=== PATIENT | male | born 1965 | race Caucasian/White ===

== ENCOUNTER 2016-11-08 13:14 | Emergency (ER) | payer BC ==
[2016-11-08 13:41] VITALS: BP 130/81
[2016-11-08] MEDS ORDERED: Tetracaine HCl/PF 0.5% 4 ML Bottle EYEBOTH ONE (13:50)
[2016-11-08] MEDS ORDERED: Balanced Salt Solution Ophth Irrig 30 ML Bottle EYEBOTH ONE (13:50)
[2016-11-08] MEDS ORDERED: Fluorescein 1 MG Ophth Strip EYEBOTH ONE (13:50)
--- NOTE | 2016-11-08 14:14 | EDM.PDOC ---
ED HPI GENERAL MEDICAL PROBLEM - General Chief Complaint: Eye Problems Stated Complaint: LEFT EYE COMPLAINT Time Seen by Provider: 11/08/16 14:03 Source of Information: Reports: Patient History Limitations: Reports: No Limitations - History of Present Illness INITIAL COMMENTS - FREE TEXT/NARRATIVE: 51 yo Onset Date: 11/07/16 Onset Time: 12:00 Duration: Day(s): Location: Reports: Other (left eye) Quality: Reports: Ache, Other (and scratchy) Improves with: Reports: Rest Worsens with: Reports: Other (light), Movement Associated Symptoms: Reports: No Other Symptoms Left Eye Pain Score (Numeric/FACES): 3 - Related Data Allergies Allergy/AdvReac Type Severity Reaction Status Date / Time Penicillins Allergy Anaphylactic Verified 07/16/15 20:58 Shock cold Allergy Respiratory Uncoded 07/16/15 20:59 Distress Home Meds: Home Meds . [No Known Home Meds] 07/16/15 [History] Past Medical History - Past Surgical History HEENT Surgical History: Reports: Tonsillectomy GI Surgical History: Reports: Cholecystectomy Male Surgical History: Reports: Vasectomy Social & Family History - Family History Cardiac: Reports: Aneurysm - Tobacco Use Smoking Status *Q: Never Smoker - Caffeine Use Caffeine Use: Reports: None - Alcohol Use Days Per Week of Alcohol Use: 5 Number of Drinks Per Day: 5 Total Drinks Per Week: 25 - Recreational Drug Use Recreational Drug Use: No ED ROS GENERAL - Review of Systems Review Of Systems: See Below Constitutional: Reports: No Symptoms HEENT: Reports: Eye Pain Respiratory: Reports: No Symptoms Cardiovascular: Reports: No Symptoms Endocrine: Reports: No Symptoms GI/Abdominal: Reports: No Symptoms : Reports: No Symptoms Musculoskeletal: Reports: No Symptoms Skin: Reports: No Symptoms Neurological: Reports: No Symptoms Psychiatric: Reports: No Symptoms Hematologic/Lymphatic: Reports: No Symptoms Immunologic: Reports: No Symptoms ED EXAM GENERAL W FULL EYE - Physical Exam Exam: See Below Exam Limited By: No Limitations General Appearance: Alert, No Apparent Distress, Obese Eye Exam: Left Eye: Corneal Abrasion (possible from fingernail scratch) Eyelids: Bilateral: Normal Appearance Conjunctiva & Sclera: Bilateral: Normal Appearance Cornea Exam: Left: Corneal Abrasion (crescent shape) Extraocular Movements: Bilateral: Intact Pupils: Normal Accommodation Pupillary Size: Bilateral: 4 mm Pupillary Reaction: Bilateral: Brisk Anterior Chamber: Bilateral: Normal Appearance Posterior Chamber: Bilateral: Normal Funduscopic Ears: Normal External Exam Nose: Normal Inspection Throat/Mouth: Normal Inspection Head: Atraumatic Neck: Normal Inspection Respiratory/Chest: No Respiratory Distress Cardiovascular: Normal Peripheral Pulses Extremities: Normal Inspection Neurological: Alert, Oriented, CN II-XII Intact Psychiatric: Normal Affect Skin Exam: Warm Lymphatic: No Adenopathy ED EYE w/ Add Procedure - Eye Procedure Alcaine Drops Administered: Yes Eye Irrigated w/ Saline (ccs): 5 Antibiotic Oinment/Drps Admin: Left Eye - Additional/Other Procedure(s) Other (Free Text) Procedure(s) [Text1]: Gentak applied w/ eye patch Course - Vital Signs Last Recorded V/S: Last Vital Signs Temp 36.8 C 11/08/16 13:39 Pulse 75 11/08/16 13:39 Resp 16 11/08/16 13:39 BP 130/81 11/08/16 13:39 Pulse Ox 97 11/08/16 13:39 - Orders/Labs/Meds Meds: Medications Discontinued Medications Generic Name Dose Route Start Last Admin Trade Name Joseq PRN Reason Stop Dose Admin Balanced Salt Solution 30 ml 11/08/16 13:50 11/08/16 14:00 Eye Stream Eye Rinse EYEBOTH 11/08/16 13:51 5 ml ONETIME ONE Administration Fluorescein Sodium 1 mg 11/08/16 13:50 11/08/16 13:59 Ful-Monika EYEBOTH 11/08/16 13:51 1 mg ONETIME ONE Administration Gentamicin Sulfate 1 gm 11/08/16 14:15 Gentak 0.3% Ophth Oint EYELF 11/08/16 14:16 NOW STA Tetracaine HCl 5 ml 11/08/16 13:50 11/08/16 14:00 Tetracaine 0.5% Steri-Unit Dorita EYEBOTH 11/08/16 13:51 5 ml ASDIRECTED ONE Administration Departure - Departure Time of Disposition: 14:27 Disposition: Home, Self-Care 01 Condition: Good Clinical Impression: Corneal abrasion Qualifiers: Encounter type: initial encounter Laterality: left Qualified Code(s): S05.02XA - Injury of conjunctiva and corneal abrasion without foreign body, left eye, initial encounter - Discharge Information Forms: ED Department Discharge Additional Instructions: wear eye patch X 24 hours Return to ER or PCP on Wednesday for re-evaluation
== END 2016-11-08 14:45 | disposition home or self-care (01) ==
LOC: DL.ED 13:14
DX: S05.02XA Injury of conjunctiva and corneal abrasion without foreign body, left eye, initial encounter (principal); Z88.0 Allergy status to penicillin; Z91.048 Other nonmedicinal substance allergy status; Z90.49 Acquired absence of other specified parts of digestive tract; Z98.52 Vasectomy status; Z98.890 Other specified postprocedural states; X58.XXXA Exposure to other specified factors, initial encounter
CPT/HCPCS: 99282; A9270

== ENCOUNTER 2020-11-29 09:40 | Emergency (ER) | payer BC ==
[2020-11-29] MEDS ORDERED: Aspirin 81 MG Tab.Chew PO ONE (09:50)
--- NOTE | 2020-11-29 09:57 | EDM.PDOC ---
ED HPI GENERAL MEDICAL PROBLEM - General Stated Complaint: CHEST TIGHTNESS / BACK HURTS Time Seen by Provider: 11/29/20 09:45 Source of Information: Reports: Patient History Limitations: Reports: No Limitations - History of Present Illness INITIAL COMMENTS - FREE TEXT/NARRATIVE: This 55 yo male patient reports to the ED with chest tightness radiating to his back. The patient reports he has noticed some increased shortness of breath over the past month, but began to notice some chest tightness starting last night. The patient also reports some pain radiating to his left posterior shoulder. The patient denies any cardiac history. The patient has not taken anything for temporary symptom relief. Onset: Gradual Duration: Day(s):, Constant, Getting Worse Location: Reports: Chest Quality: Reports: Ache, Pressure Severity: Moderate Improves with: Reports: None Worsens with: Reports: None Context: Reports: Other Associated Symptoms: Reports: Chest Pain - Related Data Allergies Allergy/AdvReac Type Severity Reaction Status Date / Time Penicillins Allergy Anaphylactic Verified 11/29/20 10:04 Shock cold Allergy Respiratory Uncoded 07/16/15 20:59 Distress Home Meds: Home Meds . [No Known Home Meds] 07/16/15 [History] Past Medical History - Past Surgical History HEENT Surgical History: Reports: Tonsillectomy GI Surgical History: Reports: Cholecystectomy Male Surgical History: Reports: Vasectomy Social & Family History - Family History Cardiac: Reports: Aneurysm - Caffeine Use Caffeine Use: Reports: None ED ROS GENERAL - Review of Systems Review Of Systems: Comprehensive ROS is negative, except as noted in HPI. ED EXAM, GENERAL - Physical Exam Exam: See Below Exam Limited By: No Limitations General Appearance: Alert, WD/WN Eye Exam: Bilateral Eye: EOMI, Normal Inspection, PERRL Ears: Normal External Exam, Normal Canal, Hearing Grossly Normal, Normal TMs Nose: Normal Inspection, Normal Mucosa, No Blood Throat/Mouth: Normal Inspection, Normal Lips, Normal Teeth, Normal Gums, Normal Oropharynx, Normal Voice, No Airway Compromise Head: Atraumatic, Normocephalic Neck: Normal Inspection, Supple, Non-Tender, Full Range of Motion Respiratory/Chest: No Respiratory Distress, Lungs Clear, Normal Breath Sounds, No Accessory Muscle Use, Chest Non-Tender Cardiovascular: Normal Peripheral Pulses, Regular Rate, Rhythm, No Edema, No Gallop, No JVD, No Murmur, No Rub GI/Abdominal: Normal Bowel Sounds, Soft, Non-Tender, No Organomegaly, No Dis tention, No Abnormal Bruit, No Mass (Male) Exam: Deferred Rectal (Males) Exam: Deferred Back Exam: Normal Inspection, Full Range of Motion, NT Extremities: Normal Inspection, Normal Range of Motion, Non-Tender, Normal Capillary Refill, No Pedal Edema Neurological: Alert, Oriented, CN II-XII Intact, Normal Cognition, Normal Gait, Normal Reflexes, No Motor/Sensory Deficits Psychiatric: Normal Affect, Normal Mood Skin Exam: Warm, Dry, Intact, Normal Color, No Rash Lymphatic: No Adenopathy #1 Interpretation EKG Date: 11/29/20 Time: 09:46 Rhythm: NSR Rate (Beats/Min): 69 [place]: Normal P-Wave: Present QRS: Normal ST-T: Normal QT: Normal Comparison: NA - No Prior EKG Course - Vital Signs Last Recorded V/S: Last Vital Signs Temp 97.6 F 11/29/20 09:57 Pulse 66 11/29/20 09:57 Resp 18 11/29/20 09:57 BP 145/95 H 11/29/20 09:57 Pulse Ox 100 11/29/20 09:57 - Orders/Labs/Meds Labs: Laboratory Tests 11/29/20 11/29/20 11/29/20 Range/Units 09:56 09:56 09:56 WBC 7.2 (5.0-10.0) 10^3/uL RBC 4.97 (4.6-6.2) 10^6/uL Hgb 14.7 (14.0-18.0) g/dL Hct 45.6 (40.0-54.0) % MCV 91.8 (80-100) fL MCH 29.6 (27.0-34.0) pg MCHC 32.2 L (33.0-35.0) g/dL Plt Count 291 D (150-450) 10^3/uL Neut % (Auto) 51.9 (42.2-75.2) % Lymph % (Auto) 28.6 (20.5-50.1) % [place] % (Auto) 16.6 H (2-8) % Eos % (Auto) 2.5 (1.0-3.0) % Baso % (Auto) 0.4 (0.0-1.0) % D-Dimer, Quantitative 399 (0-400) ng/mL Sodium 141 (136-145) mmol/L Potassium 4.1 (3.5-5.1) mmol/L Chloride 105 (98-107) mmol/L Carbon Dioxide 29 (21-32) mmol/L Anion Gap 11.1 (7-13) mEq/L BUN 14 (7-18) mg/dL Creatinine 0.89 (0.70-1.30) mg/dL Est Cr Clr Drug Dosing TNP Estimated GFR (MDRD) > 60 BUN/Creatinine Ratio 15.7 (No establ ref range) Glucose 90 (70-99) mg/dL Lactic Acid (0.4-2.0) mmol/L Calcium 8.3 L (8.5-10.1) mg/dL Total Bilirubin 0.6 (0.2-1.0) mg/dL AST 19 (15-37) U/L ALT 27 (16-63) U/L Alkaline Phosphatase 60 (46-116) U/L Troponin I High Sens 6 (<=76) pg/mL Total Protein 7.1 (6.4-8.2) g/dL Albumin 3.2 L (3.4-5.0) g/dL Globulin 3.9 Albumin/Globulin Ratio 0.82 11/29/20 11/29/20 Range/Units 09:56 12:20 WBC (5.0-10.0) 10^3/uL RBC (4.6-6.2) 10^6/uL Hgb (14.0-18.0) g/dL Hct (40.0-54.0) % MCV (80-100) fL MCH (27.0-34.0) pg MCHC (33.0-35.0) g/dL Plt Count (150-450) 10^3/uL Neut % (Auto) (42.2-75.2) % Lymph % (Auto) (20.5-50.1) % [place] % (Auto) (2-8) % Eos % (Auto) (1.0-3.0) % Baso % (Auto) (0.0-1.0) % D-Dimer, Quantitative (0-400) ng/mL Sodium (136-145) mmol/L Potassium (3.5-5.1) mmol/L Chloride (98-107) mmol/L Carbon Dioxide (21-32) mmol/L Anion Gap (7-13) mEq/L BUN (7-18) mg/dL Creatinine (0.70-1.30) mg/dL Est Cr Clr Drug Dosing Estimated GFR (MDRD) BUN/Creatinine Ratio (No establ ref range) Glucose (70-99) mg/dL Lactic Acid 1.4 (0.4-2.0) mmol/L Calcium (8.5-10.1) mg/dL Total Bilirubin (0.2-1.0) mg/dL AST (15-37) U/L ALT (16-63) U/L Alkaline Phosphatase (46-116) U/L Troponin I High Sens 7 (<=76) pg/mL Total Protein (6.4-8.2) g/dL Albumin (3.4-5.0) g/dL Globulin Albumin/Globulin Ratio Meds: Medications Discontinued Medications Generic Name Dose Route Start Last Admin Trade Name Freq PRN Reason Stop Dose Admin Al Hydroxide/Mg Hydroxide 30 ml 11/29/20 10:31 11/29/20 10:38 Gi Cocktail Oral Solution 30 Ml PO 11/29/20 10:32 30 ml ONETIME ONE Administration Aspirin 324 mg 11/29/20 09:50 11/29/20 09:53 Aspirin 81 Mg Tab.Chew PO 11/29/20 09:51 324 mg ONETIME ONE Administration Pantoprazole Sodium 40 mg 11/29/20 11:05 11/29/20 11:13 Pantoprazole 40 Mg Vial IVPUSH 11/29/20 11:06 40 mg ONETIME ONE Administration - Re-Assessments/Exams Free Text/Narrative Re-Assessment/Exam: 11/29/20 11:15 The patient reports symptom improvement after the GI Cocktail. An order was placed for IV Protonix. The patient was advised that an order was placed for a repeat EKG to be done at 1200 today. Departure - Departure Time of Disposition: 12:59 Disposition: Home, Self-Care 01 Condition: Fair Clinical Impression: Nonspecific chest pain GERD (gastroesophageal reflux disease) Qualifiers: Esophagitis presence: esophagitis presence not specified Qualified Code(s): K21.9 - Gastro-esophageal reflux disease without esophagitis Instructions: Food Choices for Gastroesophageal Reflux Disease, Adult, Ea sy-to-Read, Gastroesophageal Reflux Disease, Adult, [id number], Nonspecific Chest Pain, Adult, [id number] Forms: ED Department Discharge Care Plan Goals: The patient was advised of the examination, lab and EKG results during the visit. The patient was given an oral dose of Aspirin, an IV dose of Protonix and a GI Cocktail while in the ED. The patient was discharged with a script for Omeprazole (20 mg) #40 to take 1 by mouth daily 30 minuted prior to eating. If the patient has any additional symptoms or concerns, the patient should follow- up with his primary care facility or return to the emergency department. Sepsis Event Note (ED) - Focused Exam Vital Signs: Vital Signs Temp Pulse Resp BP Pulse Ox 11/29/20 09:57 97.6 F 66 18 145/95 H 100
[2020-11-29 10:00] VITALS: BP 145/95; PULSE 66
[2020-11-29 10:24] LABS: ANION GAP 11.1 mEq/L (7-13); CHLORIDE,CL 105 mmol/L (98-107); SODIUM,NA 141 mmol/L (136-145)
--- NOTE | 2020-11-29 10:30 | CR ---
PROCEDURE INFORMATION: Exam: XR Chest Exam date and time: 11/29/2020 9:52 AM Age: 55 years old Clinical indication: Pain; Other: Chest; Additional info: Chest pain TECHNIQUE: Imaging protocol: XR of the chest. Views: 1 view. COMPARISON: CR Chest 1V Frontal 07/16/2015 9:04 PM FINDINGS: Lungs: Unremarkable. No consolidation. Pleural spaces: Unremarkable. No pleural effusion. No pneumothorax. Heart/Mediastinum: Unremarkable. No cardiomegaly. Bones/joints: Unremarkable. IMPRESSION: No acute cardiac or pulmonary findings.
[2020-11-29] MEDS ORDERED: GI Cocktail Oral Solution 30 ML PO ONE (10:31)
[2020-11-29] MEDS ORDERED: Pantoprazole 40 MG Vial IVPUSH ONE (11:05)
== END 2020-11-29 13:08 | disposition home or self-care (01) ==
LOC: DL.ED 09:40
DX: K21.9 Gastro-esophageal reflux disease without esophagitis (principal); Z88.0 Allergy status to penicillin
CPT/HCPCS: 36415; 71045; 80053; 83605; 84484; 85025; 85379; 93005; 93010; 96374; 99284; 99285-25; A9270-GY; C9113

== ENCOUNTER 2021-09-13 09:23 | Emergency (ER) | payer BC ==
[2021-09-13 09:37] VITALS: BP 136/83; PULSE 65
== END 2021-09-13 11:20 | disposition home or self-care (01) ==
LOC: DL.ED 09:23
DX: M25.531 Pain in right wrist (principal); M79.631 Pain in right forearm; E66.9 Obesity, unspecified; Z88.0 Allergy status to penicillin; Z91.09 Other allergy status, other than to drugs and biological substances; Z68.41 Body mass index [BMI] 40.0-44.9, adult
CPT/HCPCS: 73090-RT; 73120-RT; 99283-25

== ENCOUNTER 2021-11-24 20:22 | Emergency (ER) | payer BC ==
[2021-11-24] MEDS ORDERED: Acetaminophen/HYDROcodone 325-10 MG Tab PO ONE (20:23)
[2021-11-24 20:41] VITALS: BP 142/76; PULSE 74
[2021-11-24] MEDS ORDERED: Ibuprofen 600 MG Tab PO ONE (21:20)
[2021-11-24] MEDS ORDERED: Acetaminophen/HYDROcodone 325-10 MG Tab ONE (21:36)
== END 2021-11-24 22:10 | disposition home or self-care (01) ==
LOC: DL.ED 20:22
DX: S42.295A Other nondisplaced fracture of upper end of left humerus, initial encounter for closed fracture (principal); E66.9 Obesity, unspecified; Z68.30 Body mass index [BMI] 30.0-30.9, adult; Z91.09 Other allergy status, other than to drugs and biological substances; Z88.0 Allergy status to penicillin; W18.40XA Slipping, tripping and stumbling without falling, unspecified, initial encounter
CPT/HCPCS: 73030-LT; 73060-LT; 73090-LT; 73130-LT; 99283; 99284; A9270-GY

== ENCOUNTER 2022-06-16 21:52 | Emergency (ER) | payer BC ==
[2022-06-16] MEDS ORDERED: Sodium Chloride 0.9% 10 ML Syringe FLUSH PRN (22:11)
[2022-06-16] MEDS ORDERED: Triamcinolone Acetonide 40 MG/ML 1 ML SDV INJECT ONE (22:11)
[2022-06-16] MEDS ORDERED: diphenhydrAMINE 50 MG/ML SDV IM ONE (22:13)
[2022-06-16 22:19] VITALS: BP 156/95; PULSE 86
== END 2022-06-16 22:39 | disposition home or self-care (01) ==
LOC: DL.ED 21:52
DX: K13.79 Other lesions of oral mucosa (principal); L50.2 Urticaria due to cold and heat; E66.9 Obesity, unspecified; Z68.30 Body mass index [BMI] 30.0-30.9, adult; Z88.0 Allergy status to penicillin; Z91.09 Other allergy status, other than to drugs and biological substances
CPT/HCPCS: 96372; 99283; J1200; J3301

== ENCOUNTER 2022-08-02 20:59 | Emergency (ER) | payer BC ==
[2022-08-02 21:19] VITALS: BP 151/94; PULSE 79
== END 2022-08-02 22:25 | disposition home or self-care (01) ==
LOC: DL.ED 20:59
DX: T18.198A Other foreign object in esophagus causing other injury, initial encounter (principal); E66.9 Obesity, unspecified; Z68.41 Body mass index [BMI] 40.0-44.9, adult; Z88.0 Allergy status to penicillin
CPT/HCPCS: 99283

== ENCOUNTER 2024-01-07 07:47 | Emergency (ER) | payer BC ==
[2024-01-07 08:22] LABS: BASOPHILS PERCENT AUTO 0.3 % (0.0-1.0); EOSINOPHILS PERCENT AUTO 2.5 % (1.0-3.0); HEMATOCRIT 42.2 % (40.0-54.0); HEMOGLOBIN 13.8 g/dL (14.0-18.0); LYMPHOCYTES PERCENT AUTO 30.1 % (20.5-50.1); MEAN CORPUSCULAR HEMOGLOBIN 30.3 pg (27.0-34.0); MEAN CORPUSCULAR HGB CONC 32.7 g/dL (33.0-35.0); MEAN CORPUSCULAR VOLUME 92.5 fL (80-100); MONOCYTES PERCENT AUTO 11.2 % (2-8); NEUTROPHILS PERCENT AUTO 55.9 % (42.2-75.2); PLATELET COUNT,PLT 309 10^3/uL (150-450); RED BLOOD CELL COUNT 4.56 10^6/uL (4.6-6.2); WHITE BLOOD CELL COUNT,WBC 6.1 10^3/uL (5.0-10.0)
[2024-01-07 08:33] LABS: APPEARANCE,URINE CLEAR (CLEAR); BILIRUBIN,URINE NEGATIVE (NEGATIVE); COLOR,URINE YELLOW (YELLOW); GLUCOSE,URINE NEGATIVE (NEGATIVE); KETONES,URINE NEGATIVE (NEGATIVE); LEUKOCYTE ESTERASE,URINE NEGATIVE (NEGATIVE); NITRITE,URINE NEGATIVE (NEGATIVE); OCCULT BLOOD,URINE NEGATIVE (NEGATIVE); PH,URINE 5.5 (5.0-9.0); PROTEIN,URINE NEGATIVE (NEGATIVE); UROBILINOGEN,URINE 0.2 mg/dL (0.2-1.0)
[2024-01-07 08:38] LABS: A/G RATIO 0.9; ALBUMIN 3.5 g/dL (3.4-5.0); ANION GAP 11.7 mEq/L (7-13); BILIRUBIN TOTAL 0.4 mg/dL (0.2-1.0); BUN/CREATININE RATIO 12.8 (No establ ref range); CALCIUM 8.9 mg/dL (8.5-10.1); CREATININE 1.17 mg/dL (0.70-1.30); EST CRCL DRUG DOSING (CG) 69.33 mL/min; MAGNESIUM 1.9 mg/dL (1.8-2.4); POTASSIUM,K 3.7 mmol/L (3.5-5.1); PROTEIN TOTAL,TP 7.6 g/dL (6.4-8.2)
[2024-01-07] MEDS: Iopamidol 755 Mg/ML 100 ML Bottle IVPUSH ONE (09:13)
[2024-01-07] MEDS: Sodium Chloride 0.9% 1,000 ML IV ONE (11:18)
[2024-01-07 11:20] VITALS: BP 133/84; PULSE 75
[2024-01-07] MEDS: Acetaminophen 325 MG Tab PO ONE (11:26)
== END 2024-01-07 11:51 | disposition home or self-care (01) ==
LOC: DL.ED 07:47
DX: R07.9 Chest pain, unspecified (principal); E86.9 Volume depletion, unspecified; R79.1 Abnormal coagulation profile; E66.9 Obesity, unspecified; Z68.35 Body mass index [BMI] 35.0-35.9, adult; Z90.49 Acquired absence of other specified parts of digestive tract; Z88.0 Allergy status to penicillin; Z91.048 Other nonmedicinal substance allergy status; Z79.899 Other long term (current) drug therapy
CPT/HCPCS: 36415; 71045; 71275; 80053; 81003; 83690; 83735; 83880; 84484; 85025; 85379; 87635; 87804; 93005; 93970; 96360; 99285; A9270; J7030; Q9967; U0002